=== PATIENT | female | born 1950 | race Caucasian/White ===

== ENCOUNTER 2021-09-21 09:02 | Observation (INO) | payer OTHER ==
[~2021-09-21] VITALS: Ht 162.6 cm; Wt 61.8 kg
[2021-09-21 10:04] LABS: BASO % 0.5 % (0.0-1.0); EOS % 0.3 % (0.0-3.0); HEMATOCRIT 42.3 % (36.0-47.0); HEMOGLOBIN 13.6 g/dl (12.0-15.5); LYMPH # 0.8 10^3/uL (1.5-5.0); LYMPH % 11.3 % (24.0-44.0); MEAN CORPUSCULAR HEMOGLOBIN 27.2 pg (27.0-33.0); MEAN CORPUSCULAR HGB CONC 32.2 g/dl (32.0-36.5); MEAN CORPUSCULAR VOLUME 84.6 fl (80.0-96.0); MONO # 0.3 10^3/uL (0.0-0.8); MONO % 4.7 % (2.0-8.0); NEUTROPHILS % 82.8 % (36.0-66.0); PLATELET COUNT, AUTOMATED 341 10^3/uL (150-450); WHITE BLOOD COUNT 7.3 10^3/uL (4.0-10.0)
[2021-09-21 10:15] LABS: INR 0.92; PROTHROMBIN TIME 12.8 SECONDS (12.7-14.5)
[2021-09-21 10:16] LABS: PARTIAL THROMBOPLASTIN TIME 26.7 SECONDS (25.9-37.0)
[2021-09-21 10:36] LABS: ALBUMIN 3.8 GM/DL (3.2-5.2); ALT/SGPT 22 U/L (12-78); BILIRUBIN,DIRECT 0.1 MG/DL (0.0-0.2); BILIRUBIN,TOTAL 0.2 MG/DL (0.2-1.0); BLOOD UREA NITROGEN 18 MG/DL (7-18); CALCIUM LEVEL 9.3 MG/DL (8.8-10.2); CARBON DIOXIDE LEVEL 30 MEQ/L (21-32); CHLORIDE LEVEL 104 MEQ/L (98-107); CREATININE FOR GFR 0.76 MG/DL (0.55-1.30); FREE T4 1.11 NG/DL (0.76-1.46); GLOMERULAR FILTRATION RATE > 60.0 (>39); GLUCOSE, FASTING 120 MG/DL (70-100); LIPASE 118 U/L (73-393); NT-PRO BNP 185 PG/ML (<125); POTASSIUM SERUM 3.7 MEQ/L (3.5-5.1); SODIUM LEVEL 141 MEQ/L (136-145); TOTAL PROTEIN 7.2 GM/DL (6.4-8.2)
[2021-09-21 10:49] LABS: RSV AMPLIFICATION NEGATIVE (NEGATIVE)
[2021-09-21] MEDS ORDERED: VITA100093 PO (12:14)
[2021-09-21] MEDS ORDERED: ASPI81TA26 PO (12:14)
[2021-09-21] MEDS ORDERED: PROL60SO SC (12:14)
[2021-09-21] MEDS ORDERED: ENAL5TA PO (12:14)
[2021-09-21] MEDS ORDERED: PANT-23 PO (12:14)
[2021-09-21] MEDS ORDERED: FISH1000 PO (12:14)
[2021-09-21] MEDS ORDERED: METF-838 PO (12:14)
[2021-09-21] MEDS ORDERED: CRES5TAB PO (12:14)
[2021-09-21] MEDS ORDERED: HOME MED LIST COMPLETE! XX SCH (12:15)
[2021-09-21] MEDS ORDERED: ACETAMINOPHEN TAB 650MG DOSE (2X325MG) PO PRN (12:20)
[2021-09-21] MEDS ORDERED: MAALOX 30 ML SUSP *UDC PO PRN (12:20)
[2021-09-21] MEDS ORDERED: DEXTROSE 50% 50 ML SYRINGE IV PRN (12:55)
[2021-09-21] MEDS ORDERED: GLUCAGON INJ 1MG VIAL SC PRN (12:55)
[2021-09-21] MEDS ORDERED: GLUCOSE 4GM CHEW TABLET PO PRN (12:55)
[2021-09-21] MEDS: DOCUSATE SODIUM 100MG CAPSULE PO SCH ×2 (13:17→19:01)
[2021-09-21] MEDS: HumaLOG INSULIN (NovoLOG) PER UNIT SC SCH ×2 (13:18→17:30)
[2021-09-21] MEDS ORDERED: ENALAPRIL MALEATE 5 MG TAB PO ONE (18:50)
[2021-09-21] MEDS ORDERED: PILL CUTTER 1 EACH XX PRN (19:00)
[2021-09-21 20:50] VITALS: BP 184/102
[2021-09-21] MEDS ORDERED: HumaLOG INSULIN (NovoLOG) PER UNIT SC SCH (21:00)
[2021-09-21] MEDS ORDERED: ROSUVASTATIN 10 MG TAB (CRESTOR) PO SCH (21:00)
[2021-09-21 22:00] VITALS: BP 172/96
[2021-09-21] MEDS ORDERED: **hydrALAZINE HCL** 25 MG TAB PO ONE (22:15)
[2021-09-21 23:30] VITALS: BP 157/88
[2021-09-22 02:00] VITALS: BP 153/82
[2021-09-22 06:05] VITALS: BP 144/83
[2021-09-22] MEDS ORDERED: predniSONE 5 MG TAB PO SCH (06:40)
[2021-09-22] MEDS: HumaLOG INSULIN (NovoLOG) PER UNIT SC SCH ×2 (07:30→12:00)
[2021-09-22 08:23] LABS: BASO # 0.1 10^3/uL (0.0-0.2); BASO % 0.9 % (0.0-1.0); EOS % 0.6 % (0.0-3.0); HEMOGLOBIN 13.3 g/dl (12.0-15.5); LYMPH # 1.3 10^3/uL (1.5-5.0); LYMPH % 20.4 % (24.0-44.0); MEAN CORPUSCULAR HEMOGLOBIN 27.6 pg (27.0-33.0); MEAN CORPUSCULAR HGB CONC 32.4 g/dl (32.0-36.5); MEAN CORPUSCULAR VOLUME 85.1 fl (80.0-96.0); MONO # 0.5 10^3/uL (0.0-0.8); MONO % 7.7 % (2.0-8.0); NEUTROPHILS # 4.5 10^3/uL (1.5-8.5); NEUTROPHILS % 70.1 % (36.0-66.0); PLATELET COUNT, AUTOMATED 304 10^3/uL (150-450); RED BLOOD COUNT 4.82 10^6/uL (4.00-5.40); WHITE BLOOD COUNT 6.5 10^3/uL (4.0-10.0)
[2021-09-22] MEDS ORDERED: PRED5TA PO (08:52)
[2021-09-22 08:56] LABS: BLOOD UREA NITROGEN 11 MG/DL (7-18); CALCIUM LEVEL 8.9 MG/DL (8.8-10.2); CARBON DIOXIDE LEVEL 29 MEQ/L (21-32); CHLORIDE LEVEL 108 MEQ/L (98-107); CREATININE FOR GFR 0.68 MG/DL (0.55-1.30); GLOMERULAR FILTRATION RATE > 60.0 (>39); GLUCOSE, FASTING 131 MG/DL (70-100); POTASSIUM SERUM 3.9 MEQ/L (3.5-5.1); SODIUM LEVEL 140 MEQ/L (136-145)
[2021-09-22 08:57] LABS: ALBUMIN 3.4 GM/DL (3.2-5.2); ALT/SGPT 16 U/L (12-78); BILIRUBIN,TOTAL 0.3 MG/DL (0.2-1.0); MAGNESIUM LEVEL 2.2 MG/DL (1.8-2.4); TOTAL PROTEIN 6.5 GM/DL (6.4-8.2)
[2021-09-22] MEDS ORDERED: PANTOPRAZOLE 40MG TAB (PROTONIX) PO SCH (09:00)
[2021-09-22] MEDS: DOCUSATE SODIUM 100MG CAPSULE PO SCH (09:00)
[2021-09-22] MEDS ORDERED: VITAMIN D 1,000 INTERNATIONAL UNITS TABLET PO SCH (09:00)
[2021-09-22] MEDS ORDERED: ENALAPRIL MALEATE 5 MG TAB PO SCH (09:00)
[2021-09-22] MEDS ORDERED: ASPIRIN 81MG ENTERIC TABLET PO SCH (09:00)
[2021-09-22] MEDS ORDERED: clonazePAM 0.5 MG TAB PO PRN (11:10)
[2021-09-22 13:38] VITALS: BP_SYST 154; BP_SYST 159; BP_SYST 160; BP_DIAS 90; BP_DIAS 92; BP_DIAS 99
[2021-09-22] MEDS ORDERED: AMLO25TA PO (13:48)
[2021-09-22] MEDS ORDERED: HYDR-643 PO (13:50)
[2021-09-22 14:03] VITALS: BP 159/92
[2021-09-22] MEDS ORDERED: clonazePAM 0.5 MG TAB PO ONE (14:15)
[2021-09-22 14:39] VITALS: BP 150/92
== END 2021-09-22 15:40 | disposition home or self-care (01) ==
LOC: M ED 09:02 → M ED INP 09:03 → INTOOBSV 12:19 → UNDOADMOB 12:19 → M ED INP 12:19 → ENRESERV 20:19 → M ED INP 20:50 → M MSPAV 20:50
PROVIDERS: ADMIT Family Medicine; ATTEND Family Medicine
DX: R55 Syncope and collapse (principal); I16.0 Hypertensive urgency; E11.9 Type 2 diabetes mellitus without complications; E78.00 Pure hypercholesterolemia, unspecified; Z86.79 Personal history of other diseases of the circulatory system; Z87.39 Personal history of other diseases of the musculoskeletal system and connective tissue; Z79.52 Long term (current) use of systemic steroids; Z79.82 Long term (current) use of aspirin; Z79.84 Long term (current) use of oral hypoglycemic drugs; Z88.2 Allergy status to sulfonamides; Z79.899 Other long term (current) drug therapy
CPT/HCPCS: 36415; 70450; 71045; 80048; 80053; 80076; 81001; 82383; 82533; 83690; 83735; 83835; 83880; 84439; 84443; 84484; 84585; 85025; 85610; 85730; 87631; 93005; 93041; 93306; 93880; 94760; 95819; 97161; 97530; 99285; J7512